=== PATIENT | female | born 1975 | race Caucasian/White ===

== ENCOUNTER 2016-11-30 00:29 | Emergency (ER) | payer OTHER ==
[~2016-11-30] VITALS: Ht 165.1 cm; Wt 62.6 kg
[2016-11-30] MEDS ORDERED: WELLBUTRIN SR100 MG PO (00:37)
[2016-11-30] MEDS ORDERED: OMEPRAZOLE20 M1 PO (00:37)
[2016-11-30] MEDS ORDERED: LEXAPRO10 MG PO (00:37)
[2016-11-30] MEDS ORDERED: ATORVASTATIN CA20 MG PO (00:38)
[2016-11-30] MEDS ORDERED: MECLIZINE HCL12.5 MG PO (02:33)
--- NOTE | 2016-11-30 19:50 | EKG ---
[facility] [place] [facility] [address] [facility] [place] [address] Signed Normal sinus rhythm Normal ECG No previous ECGs available Confirmed by FRANCESCA YANG MD ([id number]) on 11/30/2016 7:49:59 PM Electronically Signed By: FRANCESCA YANG MD 11/30/16 1950 PATIENT NAME: NERI GO Electrocardiogram DATE OF : 77 PHYSICIAN: FRANCESCA YANG MD REPORT #: [id number] REPORT IS CONFIDENTIAL AND NOT TO BE RELEASED WITHOUT AUTHORIZATION
== END 2016-11-30 02:50 | disposition home or self-care (01) ==
LOC: ED 00:29
DX: F10.129 Alcohol abuse with intoxication, unspecified (principal); R42 Dizziness and giddiness; F41.9 Anxiety disorder, unspecified; Z87.891 Personal history of nicotine dependence; Z98.51 Tubal ligation status; Z88.8 Allergy status to other drugs, medicaments and biological substances; Z79.899 Other long term (current) drug therapy
CPT/HCPCS: 80053; 81001; 85025; 93005; 93010; 96361; 96374; 99284; G0480; J2405; J7030

== ENCOUNTER 2019-10-21 08:54 | Day surgery (SDC) | payer OTHER ==
[~2019-10-21] VITALS: Ht 165.1 cm; Wt 68.0 kg
[~2019-10-21 08:54] MED LIST: ACETAMINOPHEN-1 EACH PO; ATORVASTATIN CA20 MG PO; LEXAPRO10 MG PO; MECLIZINE HCL12.5 MG PO; OMEPRAZOLE20 M1 PO; WELLBUTRIN SR100 MG PO
--- NOTE | 2019-10-21 11:18 | NUR ---
10/21/19 1118 Brooke Valdez 1108 PT ARRIVED TO PACU ON 2L NC, VSS. O2 TURNED OFF. 1112 MD AT BEDSDIE AND PT WAKES EASILY. PT DENIES NAUSEA AND PAIN.
--- NOTE | 2019-10-22 10:33 | OR ---
[facility] [address] [place], [place] [address] Signed DATE OF OPERATION: 10/21/2019 SURGEON: Jeremy Be MD PREOPERATIVE DIAGNOSES: 1. Episodic rectal bleeding. 2. Elevated fecal calprotectin study. POSTOPERATIVE DIAGNOSIS: Mild low rectal inflammation. PROCEDURE: Total colonoscopy to cecum with biopsy of cecum, ileum and low rectum. ANESTHESIA: Intravenous sedation, fentanyl 150 mcg and Versed 5 mg. INDICATION: This 44-year-old white woman is a patient of Connie Monge. She has had episodes of episodic rectal bleeding. No associated diarrhea and occasional constipation. She underwent evaluation by MINDY Brunner, which included fecal calprotectin, which was elevated. She is now admitted to undergo colonoscopy. She understands the risks of bleeding, infection, perforation. FINDINGS: The prep was excellent. Complete colonoscopy was undertaken to the cecum. There were no polyps or diverticular formation, and I saw no sign of terminal ileitis. Intubation of the ileum was attempted, but not accomplished though the lumen of the ileum could be identified and biopsies of the ileum were taken. The colonic mucosa appeared normal. The low rectum did show mild inflammatory change for which biopsies were also obtained. DESCRIPTION OF PROCEDURE: The patient was brought to the endoscopy suite and placed in lateral decubitus position, given intravenous sedation to the point of slurred speech and nystagmus. Digital rectal examination was normal. An Olympus video colonoscope was passed in the rectum and manipulated throughout the colon ultimately intubating the cecum itself. The ileocecal valve was identified and was slit-like and with various manipulations, ultimately was partially intubated. The scope was not able to be advanced into it, not due to a stricture obstruction, but simply a narrow aperture there. The biopsy was able to be performed of the ileal mucosa Electronically Signed By: JEREMY BE MD 10/22/19 1033 PATIENT NAME: NERI PATRICK OPERATIVE REPORT DATE OF : 77 REPORT #: [id number] PHYSICIAN: JEREMY BE MD PCP: CONNIE MONGE REPORT IS CONFIDENTIAL AND NOT TO BE RELEASED WITHOUT AUTHORIZATION [facility] [address] [place], [place] [address] Signed however. Biopsies were subsequently taken of the cecum. Careful withdrawal of scope showed no sign of abnormality. Upon withdrawal the scope, specifically no polyps or diverticular formation. In the low part of the rectum was inflammation more so than on average colonoscopy that would be bowel prep related. On that basis, multiple biopsies were obtained of the low rectum. Retroflexed view confirmed those findings. The scope was removed and the patient was taken to the recovery room in good condition. CONCLUDING DIAGNOSIS: Low rectal inflammation of uncertain significance. Biopsies have been accomplished. Ileal biopsies also performed. PLAN: We will see her back in the office in a few weeks and review her pathology report. She will be observed as to bowel problems in particularly diarrhea and other bowel habit issues. MD RITCHIE Disla/GYPSY /[id number] cc: MINDY Brunner Copies: CONNIE MONGE ~ Electronically Signed By: JEREMY BE MD 10/22/19 1033 PATIENT NAME: NERI PATRICK OPERATIVE REPORT DATE OF : 77 REPORT #: [id number] PHYSICIAN: JEREMY BE MD PCP: CONNIE MONGE REPORT IS CONFIDENTIAL AND NOT TO BE RELEASED WITHOUT AUTHORIZATION
--- NOTE | 2019-10-26 14:43 | PATH ---
[facility] [address] [place], [place] [address] Signed SPECIMEN(S): A CECUM SPECIMEN(S): B TERMINAL ILEUM SPECIMEN(S): C RECTUM SPECIMEN SOURCE: A. CECUM B. TERMINAL ILEUM C. RECTUM CLINICAL HISTORY: Rectal hemorrhage. Postop: Low rectal inflammation. MICROSCOPIC DESCRIPTION: Histologic sections of all submitted blocks are examined by light microscopy. These findings, together with the gross examination, support the pathologic diagnosis. FINAL PATHOLOGIC DIAGNOSIS: A. Colon, cecum, biopsy: - Colonic mucosa with mild focal active inflammation. - Negative for chronic colitis or granulomata. - Negative for dysplasia or malignancy. B. Terminal ileum, biopsy: - Ileal mucosa with no histopathologic abnormality. - Negative for active inflammation, chronic changes, or granulomata. - Negative for dysplasia or malignancy. C. Rectum, biopsy: - Fragments of rectal mucosa with chronic, active proctitis. - Negative for dysplasia or malignancy. - See comment. COMMENT: Sections of the rectal biopsy (C) demonstrate rectal mucosa with cryptitis, mucosal erosion, basal lymphoplasmacytosis, and crypt architectural distortion. No granulomata are seen. No viral cytopathic changes or infectious organisms are identified on HE stain. The findings are compatible with inflammatory bowel disease and given the location of the changes and lack of granulomata, ulcerative colitis is favored. Clinical correlation is required. As part of [facility]' Quality Improvement Program, part C of this case was reviewed by another member of our pathology staff. NAL:NRT:cml:C2NR PATIENT NAME: NERI PATRICK PATHOLOGY DATE OF : [birth year] REPORT #: [id number] PHYSICIAN: ZEKE OROZCO PCP: CONNIE DELATORRE REPORT IS CONFIDENTIAL AND NOT TO BE RELEASED WITHOUT AUTHORIZATION [facility] [address] [place], [place] [address] Signed GROSS DESCRIPTION: Three specimens are received in three containers, labeled "SS." A. The specimen, labeled "SS, cecum biopsy," is received in formalin and consists of two williamson soft tissue fragments that measure 0.2 cm in greatest dimension. The specimen is entirely submitted in cassette (A1). B. The specimen, labeled "SS, terminal ileum biopsy," is received in formalin and consists of one williamson soft tissue fragment that measures 0.2 cm in greatest dimension. The specimen is entirely submitted in cassette (B1). C. The specimen, labeled "SS, rectal biopsy," is received in formalin and consists of two williamson soft tissue fragments that measure 0.2 cm in greatest dimension. The specimen is entirely submitted in cassette (C1). JS (under the direct supervision of a pathologist) The Gross Description was prepared using a voice recognition system. The report was reviewed for accuracy; however, sound-alike word errors, addition and/or deletions may occur. If there is any question about this report, please contact Client Services. PERFORMING LABORATORY: The technical component was performed by [facility], [address] [place] [id number] (Prosthetics Technician: Rhonda Huggins MD; CLIA# [id number]). [facility], [address] [place] [id number] (CLIA# [id number]). Diagnostician: Sandra Dos Santos MD Pathologist Electronically Signed 10/26/2019 Copies: ~ PATIENT NAME: NERI PATRICK PATHOLOGY DATE OF : [birth year] REPORT #: [id number] PHYSICIAN: ZEKE OROZCO PCP: CONNIE DELATORRE REPORT IS CONFIDENTIAL AND NOT TO BE RELEASED WITHOUT AUTHORIZATION
== END 2019-10-21 11:50 | disposition home or self-care (01) ==
LOC: OPS 08:54 → DS 08:54 → OPS 09:45
PROVIDERS: Surgery
PROC: 0DBP8ZX Excision of Rectum, Via Natural or Artificial Opening Endoscopic, Diagnostic (ICD-10-PCS; 2019-10-21)
PROC: 0DBB8ZX Excision of Ileum, Via Natural or Artificial Opening Endoscopic, Diagnostic (ICD-10-PCS; 2019-10-21)
PROC: 0DBH8ZX Excision of Cecum, Via Natural or Artificial Opening Endoscopic, Diagnostic (ICD-10-PCS; principal; 2019-10-21 09:45)
DX: K52.9 Noninfective gastroenteritis and colitis, unspecified (principal); K62.89 Other specified diseases of anus and rectum; E78.5 Hyperlipidemia, unspecified; F32.9 Major depressive disorder, single episode, unspecified; Z88.8 Allergy status to other drugs, medicaments and biological substances; Z79.899 Other long term (current) drug therapy
CPT/HCPCS: 84703; 99153; G0500; J2250; J3010; J7121